=== PATIENT | female | born 1970 | race African-American/Black ===

== ENCOUNTER 2018-08-25 20:33 | Inpatient (IN) | payer MEDICAID, OTHER ==
[~2018-08-25] VITALS: Ht 177.8 cm; Wt 110.7 kg
[2018-08-25 22:08] LABS: BASOPHILS % 0.3 % (0.0-2.0); EOSINOPHILS % 0.3 % (0.0-5.0); HEMATOCRIT. 35.9 % (36.0-48.0); LYMPHOCYTES % 10.4 % (20.0-50.0); MEAN CORPUSCULAR HEMOGLOBIN 21.1 pg (28.0-32.0); MEAN CORPUSCULAR VOLUME 68.9 fL (81.0-99.0); MEAN PLATELET VOLUME 9.4 fl (7.4-10.4); MONOCYTES % 4.4 % (2.0-8.0); NEUTROPHILS % 84.6 % (40.0-76.0); PLATELET 241 x1000/uL (130-400); RED BLOOD CELL COUNT 5.21 mill/uL (4.2-5.4); RED CELL DISTRIBUTION WIDTH 24.2 % (11.6-14.6)
[2018-08-25 22:13] LABS: CHLORIDE 107 mEq/L (98-107)
[2018-08-25 22:27] LABS: PLATELET ESTIMATE NORMAL
[2018-08-26] VITALS (10 sets, daily range): BP systolic 96–140; BP diastolic 59–92
[2018-08-26] MEDS ORDERED: ONDANSETRON HCL 4MG/2ML INJ IV ONE (01:45)
[2018-08-26] MEDS ORDERED: MORPHINE SULFATE 10 MG/ML CPJ IV ONE (01:45)
[2018-08-26] MEDS ORDERED: METO-539 PO (07:11)
[2018-08-26] MEDS ORDERED: ASPI-1159 PO (07:11)
[2018-08-26] MEDS ORDERED: HYDROCODONE/ACETAMINOPHEN 5/325MG TABLET PO PRN (08:00)
[2018-08-26] MEDS ORDERED: NITROGLYCERIN 0.4MG TABLET SL SL PRN (08:00)
[2018-08-26] MEDS: ASPIRIN 81MG TABLET PO SCH (09:59)
[2018-08-26] MEDS: METOPROLOL TARTRATE 25MG TABLET PO SCH ×2 (09:59→21:31)
[2018-08-26 19:23] LABS: CLARITY URINE CLEAR (CLEAR); COLOR URINE YELLOW (YELLOW); KETONES URINE NEGATIVE (NEGATIVE); LEUKOCYTE ESTERASE URINE NEGATIVE (NEGATIVE); NITRITE URINE NEGATIVE (NEGATIVE); OCCULT BLOOD URINE NEGATIVE (NEGATIVE); PH URINE 6.5 (4.5-8.0); PROTEIN URINE NEGATIVE (NEGATIVE); UROBILINOGEN URINE 0.2 E.U./dL (0.2-1.0)
[2018-08-26] MEDS ORDERED: REGADENOSON 0.4 MG/5 ML IV NR (19:30)
[2018-08-26 19:43] LABS: *AMPHETAMINES SCREEN URINE NEGATIVE (NEGATIVE)
[2018-08-26 19:44] LABS: *BARBITURATES SCREEN URINE NEGATIVE (NEGATIVE); *BENZODIAZEPINES SCREEN URINE NEGATIVE (NEGATIVE); *COCAINE SCREEN URINE NEGATIVE (NEGATIVE); METHADONE URINE SCREEN NEGATIVE (NEGATIVE); PHENCYCLIDINE URINE SCREEN NEGATIVE (NEGATIVE)
[2018-08-26 19:45] LABS: CANNABINOID URINE SCREEN NEGATIVE (NEGATIVE); OPIATES URINE SCREEN PRESUMTIVE POSITIVE (NEGATIVE)
[2018-08-26] MEDS ORDERED: METOPROLOL TARTRATE 50MG TABLET PO NR (22:00)
[2018-08-26] MEDS ORDERED: RISPERIDONE 0.5MG TABLET PO NR (22:00)
[2018-08-26] MEDS ORDERED: MAGNESIUM 4 G PREMIX 100 ML IV ONE (22:15)
[2018-08-26] MEDS ORDERED: POTASSIUM CHLORIDE 20MEQ TABLET SR PO SCH (22:15)
[2018-08-26] MEDS ORDERED: AMIODARONE HCL 150 MG in DEXT 5% WATER 100 ML IV NR (22:30)
[2018-08-26] MEDS ORDERED: MIDAZOLAM HCL 2 MG/2 ML VIAL IV PRN (23:15)
[2018-08-26] MEDS: ZOLPIDEM TARTRATE 5MG TABLET PO PRN (23:44)
[2018-08-27] VITALS (77 sets, daily range): BP systolic 61–145; BP diastolic 25–103
[2018-08-27] MEDS: AMIODARONE HCL 900 MG in DEXT 5% WATER 482 ML IV PRN ×2 (01:10→12:15)
[2018-08-27] MEDS: METOPROLOL TARTRATE 50MG TABLET PO NR ×2 (05:10→06:49)
[2018-08-27 05:41] LABS: BASOPHILS % 0.4 % (0.0-2.0); EOSINOPHILS % 0.5 % (0.0-5.0); HEMATOCRIT. 35.9 % (36.0-48.0); HEMOGLOBIN. 10.9 g/dL (12.0-16.0); LYMPHOCYTES % 19.8 % (20.0-50.0); MEAN CORPUSCULAR VOLUME 69.3 fL (81.0-99.0); MEAN PLATELET VOLUME 9.1 fl (7.4-10.4); MONOCYTES % 6.7 % (2.0-8.0); NEUTROPHILS % 72.6 % (40.0-76.0); PLATELET 256 x1000/uL (130-400); RED BLOOD CELL COUNT 5.19 mill/uL (4.2-5.4); RED CELL DISTRIBUTION WIDTH 24.1 % (11.6-14.6)
[2018-08-27 05:44] LABS: CHLORIDE 106 mEq/L (98-107)
[2018-08-27] MEDS: METOPROLOL TARTRATE 25MG TABLET PO SCH ×3 (09:00→15:16)
[2018-08-27] MEDS: ASPIRIN 81MG TABLET PO SCH ×2 (09:00→15:15)
[2018-08-27] MEDS ORDERED: REGADENOSON 0.4 MG/5 ML IV ONE (10:42)
[2018-08-27] MEDS: NITROGLYCERIN OINT 1GM/INCH UDPKT TD SCH ×2 (13:15→21:18)
[2018-08-27] MEDS: MORPHINE SULFATE 4 MG/ML CPJ (NOT FOR IM USE) IV PRN ×2 (15:19→19:25)
[2018-08-27] MEDS ORDERED: FUROSEMIDE 20MG/2ML VIAL IVP NR (15:30)
[2018-08-27] MEDS: ACETAMINOPHEN 325MG TABLET PO PRN (16:27)
[2018-08-27] MEDS: ONDANSETRON HCL 4MG/2ML INJ IV PRN (21:18)
[2018-08-27] MEDS: ZOLPIDEM TARTRATE 5MG TABLET PO PRN (21:19)
[2018-08-28] VITALS (58 sets, daily range): BP systolic 92–149; BP diastolic 49–95
[2018-08-28] MEDS: ONDANSETRON HCL 4MG/2ML INJ IV PRN ×2 (02:26→07:41)
[2018-08-28] MEDS: MORPHINE SULFATE 4 MG/ML CPJ (NOT FOR IM USE) IV PRN ×2 (02:26→07:41)
[2018-08-28] MEDS: NITROGLYCERIN OINT 1GM/INCH UDPKT TD SCH (05:36)
[2018-08-28] MEDS: AMIODARONE HCL 900 MG in DEXT 5% WATER 482 ML IV PRN (05:36)
[2018-08-28 05:41] LABS: BASOPHILS % 0.5 % (0.0-2.0); HEMATOCRIT. 35.9 % (36.0-48.0); LYMPHOCYTES % 18.2 % (20.0-50.0); MEAN CORPUSCULAR HEMOGLOBIN 21.2 pg (28.0-32.0); MEAN CORPUSCULAR VOLUME 69.1 fL (81.0-99.0); MEAN PLATELET VOLUME 9.1 fl (7.4-10.4); MONOCYTES % 6.3 % (2.0-8.0); PLATELET 222 x1000/uL (130-400); RED CELL DISTRIBUTION WIDTH 23.9 % (11.6-14.6)
[2018-08-28 05:56] LABS: CHLORIDE 105 mEq/L (98-107)
[2018-08-28] MEDS: ASPIRIN 81MG TABLET PO SCH (08:55)
[2018-08-28] MEDS: PANTOPRAZOLE 40MG DR TABLET PO SCH (08:55)
[2018-08-28] MEDS ORDERED: METOPROLOL TARTRATE 50MG TABLET PO SCH (09:00)
[2018-08-28] MEDS ORDERED: DOCUSATE SODIUM 250MG CAPSULE PO NR (10:00)
[2018-08-28] MEDS ORDERED: METOCLOPRAMIDE HCL 10MG TABLET PO PRN (10:15)
[2018-08-28] MEDS: ACETAMINOPHEN 325MG TABLET PO PRN (10:25)
[2018-08-28] MEDS ORDERED: POTASSIUM CHLORIDE 20MEQ TABLET SR PO NR (11:45)
[2018-08-28] MEDS ORDERED: METOPROLOL TARTRATE 25MG TABLET PO NR (11:45)
[2018-08-28] MEDS ORDERED: FUROSEMIDE 40MG/4ML VIAL IVP NR (19:30)
[2018-08-28] MEDS ORDERED: POTASSIUM CHLORIDE 20MEQ/PACKET PO NR (19:30)
[2018-08-28] MEDS ORDERED: LACTULOSE 20G/30ML UDC PO PRN (21:00)
[2018-08-28] MEDS: METOPROLOL TARTRATE 25MG TABLET PO SCH (21:53)
[2018-08-29] VITALS (28 sets, daily range): BP systolic 87–133; BP diastolic 36–83
[2018-08-29] MEDS: ACETAMINOPHEN 325MG TABLET PO PRN (02:50)
[2018-08-29] MEDS: AMIODARONE HCL 900 MG in DEXT 5% WATER 482 ML IV PRN (05:02)
[2018-08-29 06:43] LABS: BASOPHILS % 0.3 % (0.0-2.0); EOSINOPHILS % 0.7 % (0.0-5.0); HEMATOCRIT. 36.9 % (36.0-48.0); HEMOGLOBIN. 11.2 g/dL (12.0-16.0); LYMPHOCYTES % 14.1 % (20.0-50.0); MEAN CORPUSCULAR HEMOGLOBIN 20.9 pg (28.0-32.0); MEAN CORPUSCULAR VOLUME 68.9 fL (81.0-99.0); MEAN PLATELET VOLUME 8.9 fl (7.4-10.4); MONOCYTES % 7.5 % (2.0-8.0); NEUTROPHILS % 77.4 % (40.0-76.0); PLATELET 240 x1000/uL (130-400); RED BLOOD CELL COUNT 5.35 mill/uL (4.2-5.4); RED CELL DISTRIBUTION WIDTH 23.4 % (11.6-14.6)
[2018-08-29 06:59] LABS: CHLORIDE 103 mEq/L (98-107)
[2018-08-29] MEDS: METOPROLOL TARTRATE 25MG TABLET PO SCH (08:16)
[2018-08-29] MEDS: ASPIRIN 81MG TABLET PO SCH (08:19)
[2018-08-29] MEDS: PANTOPRAZOLE 40MG DR TABLET PO SCH (08:19)
[2018-08-29] MEDS ORDERED: AMIODARONE HCL 200 MG TABLET PO SCH (13:00)
[2018-08-29] MEDS ORDERED: METOPROLOL TARTRATE 50MG TABLET PO SCH (21:00)
== END 2018-08-29 14:31 | disposition home or self-care (01) | DRG 201 ==
LOC: ER 20:33 → 7WST 23:47 → EDBEDREQ 23:54 → EDBEDREQTM 23:54 → ENRESERV 08-26 04:48 → CVICU 08-26 22:50
PROVIDERS: ADMIT Internal Medicine; ATTEND Internal Medicine
PROC: 4B02XTZ Measurement of Cardiac Defibrillator, External Approach (ICD-10-PCS; principal; 2018-08-26)
DX: I48.91 Unspecified atrial fibrillation (principal); I11.0 Hypertensive heart disease with heart failure; I50.9 Heart failure, unspecified; E44.1 Mild protein-calorie malnutrition; I47.1 Supraventricular tachycardia; Z95.810 Presence of automatic (implantable) cardiac defibrillator; E66.9 Obesity, unspecified; D64.9 Anemia, unspecified; Z71.3 Dietary counseling and surveillance; F41.9 Anxiety disorder, unspecified; Z68.35 Body mass index [BMI] 35.0-35.9, adult
CPT/HCPCS: 36415; 71045; 78452; 80048; 80061; 80305; 83036; 83735; 83880; 84443; 84484; 93005; 93017; 93306; 93970; 96374; 96375; 99285; A9500; J0282; J1940; J2250; J2270; J2405; J2785; J3475; J7060; J8597

== ENCOUNTER 2018-09-10 15:58 | Emergency (ER) | payer MEDICAID, OTHER ==
[~2018-09-10] VITALS: Ht 177.8 cm; Wt 104.0 kg
[~2018-09-10 15:58] MED LIST: ASPI-1159 PO; METO-539 PO
[2018-09-10] MEDS ORDERED: AMIO100T4 PO (16:17)
[2018-09-10] MEDS ORDERED: SODIUM CHLORIDE 0.9% 1,000 ML IV ONE (17:37)
[2018-09-10 20:08] LABS: BASOPHILS % 0.9 % (0.0-2.0); EOSINOPHILS % 0.3 % (0.0-5.0); HEMATOCRIT. 36.1 % (36.0-48.0); LYMPHOCYTES % 14.9 % (20.0-50.0); MEAN CORPUSCULAR HEMOGLOBIN 21.3 pg (28.0-32.0); MEAN CORPUSCULAR VOLUME 69.8 fL (81.0-99.0); MEAN PLATELET VOLUME 9.2 fl (7.4-10.4); MONOCYTES % 5.3 % (2.0-8.0); NEUTROPHILS % 78.6 % (40.0-76.0); PLATELET 242 x1000/uL (130-400); RED BLOOD CELL COUNT 5.18 mill/uL (4.2-5.4)
[2018-09-10 20:15] LABS: CHLORIDE 105 mEq/L (98-107)
[2018-09-10 20:16] LABS: INR 1.2; PROTHROMBIN TIME 12.2 sec (9.1-11.1)
[2018-09-10 20:31] LABS: PLATELET ESTIMATE NORMAL
[2018-09-10] MEDS ORDERED: LORAZEPAM 1MG TABLET PO ONE (21:15)
[2018-09-10] MEDS ORDERED: AMIODARONE HCL 200 MG TABLET PO ONE (21:15)
[2018-09-10 22:40] VITALS: BP 117/76
== END 2018-09-10 22:43 | disposition home or self-care (01) ==
LOC: ER 15:58
DX: R00.2 Palpitations (principal); R55 Syncope and collapse; I10 Essential (primary) hypertension; Z79.899 Other long term (current) drug therapy
CPT/HCPCS: 36415; 71045; 80053; 81025; 84484; 85025; 85610; 93005; 96360; 96361; 99284; J7030